=== PATIENT | male | born 1980 | race African-American/Black ===

== ENCOUNTER 2018-08-23 00:38 | Emergency (ER) | payer OTHER ==
[~2018-08-23] VITALS: Ht 172.7 cm; Wt 101.6 kg
[2018-08-23 00:55] VITALS: BP 127/84
--- NOTE | 2018-08-23 00:55 | NUR ---
ED Nurse Note: Patient walked in ER c/o left arm pain, per patient he is feeling tingling in his fingers. AAO x4, VSS at this time, skin is dry, intact, warm to touch.
--- NOTE | 2018-08-23 01:12 | Emergency Room Report ---
History of Present Illness General Chief Complaint: Upper Extremity Injury Source: Patient Present Illness HPI Is a 38-year-old male with no past medical history. He presents with 2 complaints. His first complaint is numbness to his left arm. It started 2 days ago. No trauma. He has numbness to the fourth and fifth finger and part of the middle finger. Going up his forearm. No pain. No focal deficit. No nausea no vomiting. Second complaint is some urinary urgency after drinking water. His been ongoing for about 6 months. No dysuria or frequency. No discharge. Allergies: Coded Allergies: No Known Allergies (Unverified , 08/23/18) Patient History Past Medical History: see triage record, old chart reviewed Past Surgical History: none Pertinent Family History: none Social History: Denies: smoking Immunizations: other Reviewed Nursing Documentation: PMH: Agreed; PSxH: Agreed Nursing Documentation-PMH Past Medical History: No Stated History Review of Systems Eye: Denies: eye pain, blurred vision ENT: Denies: ear pain, nose congestion, throat swelling Respiratory: Denies: cough, shortness of breath Cardiovascular: Denies: chest pain, palpitations Gastrointestinal: Denies: abdominal pain, diarrhea, nausea, vomiting Genitourinary: Reports: urgency Musculoskeletal: Denies: back pain, joint pain Skin: Denies: rash Neurological: Denies: headache, numbness Endocrine: Denies: increased thirst, increased urine Hematologic/Lymphatic: Denies: easy bruising All Other Systems: negative except mentioned in HPI Physical Exam Vital Signs Date Time Temp Pulse Resp B/P (MAP) Pulse Ox O2 Delivery O2 Flow Rate FiO2 08/23/18 00:41 98.8 83 12 127/84 95 Room Air vitals normal Sp02 EP Interpretation: reviewed, normal General Appearance: well appearing, no apparent distress, alert Head: normocephalic, atraumatic Eyes: bilateral eye PERRL, bilateral eye EOMI ENT: hearing grossly normal, normal pharynx Neck: full range of motion, supple, no meningismus Respiratory: chest non-tender, lungs clear, normal breath sounds Cardiovascular #1: regular rate, rhythm, no murmur Gastrointestinal: normal bowel sounds, non tender, no mass, no organomegaly, no bruit, non-distended Musculoskeletal: back normal, gait/station normal, normal range of motion Psychiatric: mood/affect normal Skin: warm/dry Medical Decision Making Diagnostic Impression: Primary Impression: Neuropraxia of left ulnar nerve Qualified Codes: S54.02XA - Injury of ulnar nerve at forearm level, left arm, initial encounter Additional Impression: New onset type 2 diabetes mellitus ER Course Patient with the ulnar nerve neuropraxia. Most likely secondary to pressure. No evidence of any TIA or CVA. No evidence of any trauma. Urinalysis showed 4+ glucose. Blood work showed glucose of 385. He has new-onset diabetes causing his urinary complaint. No evidence of DKA. We'll put him on metformin and close follow-up. We'll discharge home. Last Vital Signs Date Time Temp Pulse Resp B/P (MAP) Pulse Ox O2 Delivery O2 Flow Rate FiO2 08/23/18 00:55 98.8 12 127/84 95 Room Air 08/23/18 00:41 83 Status: improved Disposition: HOME, SELF-CARE Condition: Stable Scripts Metformin Hcl* (METFORMIN HCL*) 500 Mg Tablet 500 MG ORAL TWICE A DAY, #60 TAB Prov: Hardy Gaston MD 08/23/18 Referrals: PATRICK FRIEDMAN,REFERRING (PCP) Additional Instructions: Follow-up with your doctor within a week for recheck. Return if symptom worsen. Hardy Gaston MD Aug 23, 2018 01:12
--- NOTE | 2018-08-23 01:13 | NUR ---
ED Nurse Note: urine sent
[2018-08-23 01:20] LABS: APPEARANCE,URINE CLEAR; BILIRUBIN, URINE NEGATIVE (NEGATIVE); COLOR,URINE PALE YELLOW; GLUCOSE, URINE (UA) 4+ (NEGATIVE); KETONES,URINE 3+ (NEGATIVE); LEUKOCYTE ESTERASE ,URINE NEGATIVE (NEGATIVE); NITRITE,URINE NEGATIVE (NEGATIVE); PH,URINE 5 (4.5-8.0); PROTEIN,URINE NEGATIVE (NEGATIVE); UROBILINOGEN,URINE NORMAL MG/DL (0.0-1.0)
[2018-08-23 01:44] LABS: BASOPHILS % (AUTO) 2.1 % (0.0-2.0); EOSINOPHILS % (AUTO) 2.1 % (0.0-3.0); HEMATOCRIT 47.5 % (42.0-52.0); HEMOGLOBIN 16.9 G/DL (14.2-18.0); LYMPHOCYTES % (AUTO) 40.2 % (20.0-45.0); MEAN CORPUSCULAR VOLUME 79 FL (80-99); MONOCYTES % (AUTO) 6.4 % (1.0-10.0); NEUTROPHILS % (AUTO) 49.2 % (45.0-75.0); PLATELET COUNT 202 K/UL (150-450); RED BLOOD COUNT 6.04 M/UL (4.70-6.10); RED CELL DISTRIBUTION WIDTH 11.4 % (11.6-14.8); WHITE BLOOD COUNT 4.5 K/UL (4.8-10.8)
[2018-08-23 01:55] LABS: ANION GAP 12 mmol/L (5-15); BLOOD UREA NITROGEN 13 mg/dL (7-18); CALCIUM 8.3 MG/DL (8.5-10.1); CARBON DIOXIDE 24 MMOL/L (21-32); CHLORIDE 98 MMOL/L (98-107); POTASSIUM 3.8 MMOL/L (3.5-5.1); SODIUM 134 MMOL/L (136-145)
[2018-08-23] MEDS ORDERED: METFORMIN HCL500 M1 ORAL (02:17)
[2018-08-23] MEDS ORDERED: Insulin Human Regular 100units/ml 3ml IV ONE (02:30)
[2018-08-23 02:45] VITALS: BP 127/84
--- NOTE | 2018-08-23 02:46 | NUR ---
ED Nurse Note: Pt cleared by health care Provider for discharge. DC instructions/prescription was given and explained to pt and verbalized understanding of teachings. All medical deviecs such as ID band and IV removed. Pt is AAO x4, ambulatory and left with all personal belongings.
== END 2018-08-23 02:47 | disposition home or self-care (01) ==
LOC: EMR 00:52
DX: S54.02XA Injury of ulnar nerve at forearm level, left arm, initial encounter (principal); E11.9 Type 2 diabetes mellitus without complications; R35.0 Frequency of micturition
CPT/HCPCS: 36415; 80048; 81003; 82962; 85025; 96361; 96374; 99284; J1815

== ENCOUNTER 2019-03-23 22:00 | Emergency (ER) | payer OTHER ==
[~2019-03-23] VITALS: Ht 172.7 cm; Wt 98.9 kg
[~2019-03-23 22:00] MED LIST: METFORMIN HCL500 M1 ORAL
[2019-03-23 22:10] VITALS: BP 131/87
[2019-03-23] MEDS ORDERED: cefTRIAXone 500mg Inj IM ONE (22:45)
[2019-03-23] MEDS ORDERED: Lidocaine 1% MPF 10mg/ml 5ml INJ ONE (22:45)
[2019-03-23] MEDS ORDERED: Azithromycin 250mg tab ORAL ONE (22:45)
--- NOTE | 2019-03-23 22:56 | Emergency Room Report ---
History of Present Illness General Chief Complaint: Male Urogenital Problems Source: Patient Present Illness HPI 38 year old male presents with itching in his urethra, started 2 days, no aggravating or alleviating factors, recent sti check 1 mo ago negative, symptoms mild. Patient presents for std tx. Allergies: Coded Allergies: No Known Allergies (Unverified , 08/23/18) Patient History Past Medical History: see triage record Reviewed Nursing Documentation: PMH: Agreed; PSxH: Agreed Nursing Documentation-PMH Hx Diabetes: Yes Review of Systems All Other Systems: negative except mentioned in HPI Physical Exam Vital Signs Date Time Temp Pulse Resp B/P (MAP) Pulse Ox O2 Delivery O2 Flow Rate FiO2 03/23/19 22:05 98.4 91 18 131/87 (102) 94 Room Air General Appearance: well appearing, no apparent distress Head: normocephalic, atraumatic ENT: hearing grossly normal, normal voice Neck: full range of motion, supple Respiratory: no respiratory distress, speaking full sentences Genitourinary: normal inspection, penis normal, 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 Dispo home w/ return precautions Last Vital Signs Date Time Temp Pulse Resp B/P (MAP) Pulse Ox O2 Delivery O2 Flow Rate FiO2 03/23/19 22:05 98.4 91 18 131/87 (102) 94 Room Air Disposition: HOME, SELF-CARE Condition: Stable Referrals: NON PHYSICIAN (PCP) [facility] Nacho Alejandra [facility] Patient Instructions: Chlamydia, Male, Gonorrhea Additional Instructions: The patient was provided with discharge instructions, notified to follow-up with a primary care doctor and or specialist in the next 24-48 hours, and to return to the ED if they have worsening of their symptoms. Please note that this report is being documented using [employer] technology. This can lead to erroneous entry secondary to incorrect interpretation by the dictating instrument. Sohail Bernal MD Mar 23, 2019 22:56
[2019-03-23 23:00] VITALS: BP 131/87
== END 2019-03-23 23:00 | disposition home or self-care (01) ==
LOC: EMR 22:19
DX: Z20.2 Contact with and (suspected) exposure to infections with a predominantly sexual mode of transmission (principal); E11.9 Type 2 diabetes mellitus without complications
CPT/HCPCS: 96372; 96374; J0696; Q0144; Z7502; 99284

== ENCOUNTER 2019-08-17 14:10 | Emergency (ER) | payer OTHER ==
[~2019-08-17] VITALS: Ht 172.7 cm; Wt 98.9 kg
[2019-08-17 14:35] VITALS: BP 132/79
[2019-08-17] MEDS ORDERED: Lidocaine 1% MPF 10mg/ml 5ml INJ ONE (14:45)
[2019-08-17] MEDS ORDERED: Bicillin LA 2.4MMU/4ML SYR IM ONE (14:45)
[2019-08-17] MEDS ORDERED: Azithromycin 250mg tab ORAL ONE (14:45)
[2019-08-17 15:06] LABS: APPEARANCE,URINE CLEAR; BILIRUBIN, URINE NEGATIVE (NEGATIVE); COLOR,URINE PALE YELLOW; GLUCOSE, URINE (UA) 4+ (NEGATIVE); KETONES,URINE 1+ (NEGATIVE); LEUKOCYTE ESTERASE ,URINE NEGATIVE (NEGATIVE); NITRITE,URINE NEGATIVE (NEGATIVE); PH,URINE 5 (4.5-8.0); PROTEIN,URINE NEGATIVE (NEGATIVE); UROBILINOGEN,URINE NORMAL MG/DL (0.0-1.0)
--- NOTE | 2019-08-17 15:17 | Emergency Room Report ---
History of Present Illness General Chief Complaint: Male Urogenital Problems Source: Patient Present Illness HPI 39-year-old male with no significant past medical history other than uncontrolled diabetes with metformin here complaining of penile irritation x1 week. Patient denies any dysuria urinary frequency urgency. Reports that symptoms started after being sexually active with a new partner without any protection. Is here requesting treatment for chlamydia, gonorrhea, syphilis, herpes. Patient denies any penile discharge, ulceration, vesicular formation, or pruritus. Denies any fever and chills, nausea vomiting, diffuse abdominal pain, chest pain shortness of breath. Allergies: Coded Allergies: No Known Allergies (Unverified , 08/23/18) COVID-19 Screening Contact w/high risk pt: No Recent Travel to affected area: No Experienced COVID-19 symptoms?: No Patient History Past Medical History: see triage record Past Surgical History: none Pertinent Family History: none Immunizations: UTD Reviewed Nursing Documentation: PMH: Agreed; PSxH: Agreed Nursing Documentation-PMH Hx Diabetes: Yes Review of Systems All Other Systems: negative except mentioned in HPI Physical Exam Vital Signs Date Time Temp Pulse Resp B/P (MAP) Pulse Ox O2 Delivery O2 Flow Rate FiO2 08/17/19 14:17 98.6 107 18 132/79 (96) 93 Room Air Sp02 EP Interpretation: reviewed, normal General Appearance: well appearing, no apparent distress Head: normocephalic, atraumatic ENT: hearing grossly normal, normal voice Neck: full range of motion, supple Respiratory: no respiratory distress, speaking full sentences Cardiovascular #1: normal inspection, no edema Gastrointestinal: non tender, soft Rectal: deferred Genitourinary: deferred Neurologic: alert, normal gait Psychiatric: mood/affect normal Skin: no rash Lymphatic: no adenopathy Medical Decision Making PA Attestation All diagnoses and treatment plans were reviewed and discussed with my supervising physician Dr. Mathews Diagnostic Impression: Primary Impression: STD exposure ER Course 39-year-old male with no significant past medical history other than uncontrolled diabetes with metformin here complaining of penile irritation x1 week. Patient denies any dysuria urinary frequency urgency. Reports that symptoms started after being sexually active with a new partner without any protection. Is here requesting treatment for chlamydia, gonorrhea, syphilis, herpes. Patient denies any penile discharge, ulceration, vesicular formation, or pruritus. Denies any fever and chills, nausea vomiting, diffuse abdominal pain, chest pain shortness of breath. Ddx considered but are not limited to:UTI, chlamydia, Gonorrhea, syphilis, HIV , herpes 1 or 2 Vital signs: are WNL, pt. is afebrile H&PE are most consistent with : STD exposure ORDERS: UA, urince cx, acyclovir and asked patient to take it only if symptomatic ED INTERVENTIONS: Rocephin, penicillin G, azithromycin, acyclovir as patient requested prophylactic treatment DISCHARGE: At this time pt. is stable for d/c to home. Will provide printed patient care instructions, and any necessary prescriptions. Care plan and follow up instructions have been discussed with the patient prior to discharge. Last Vital Signs Date Time Temp Pulse Resp B/P (MAP) Pulse Ox O2 Delivery O2 Flow Rate FiO2 08/17/19 14:35 98.6 18 132/79 93 Room Air 08/17/19 14:17 107 Disposition: HOME, SELF-CARE Condition: Stable Scripts Acyclovir* (ACYCLOVIR*) 400 Mg Tablet 400 MG ORAL THREE TIMES A DAY for 7 Days, #21 TAB Prov: Eva Lara 08/17/19 Referrals: [facility],REFERRING (PCP) Patient Instructions: Chlamydia, Male, Genital Herpes, Gonorrhea, Syphilis Additional Instructions: Since transfer for prophylactic treatment for the above possible sexually transmitted diseases, take the acyclovir only if symptomatic, blister formation in the penile area. To follow-up with primary doctor. If worsening symptoms return to emergency room Eva Lara Aug 17, 2019 15:17
[2019-08-17] MEDS ORDERED: ACYCLOVIR400 MG ORAL (15:18)
[2019-08-17 15:25] VITALS: BP 132/79
== END 2019-08-17 15:25 | disposition home or self-care (01) ==
LOC: EMR 15:05
DX: N48.89 Other specified disorders of penis (principal); Z20.2 Contact with and (suspected) exposure to infections with a predominantly sexual mode of transmission; E11.9 Type 2 diabetes mellitus without complications; Z79.84 Long term (current) use of oral hypoglycemic drugs
CPT/HCPCS: 81003; 96372; 96374; J0696; Q0144; Z7502; 99284